=== PATIENT | female | born 1995 | race Caucasian/White ===

== ENCOUNTER 2017-03-18 08:45 | Emergency (ER) | payer OTHER ==
[~2017-03-18] VITALS: Ht 162.6 cm; Wt 63.6 kg
[2017-03-18 08:46] VITALS: BP 118/78; PULSE 62; RESP 14; O2SAT 99
[2017-03-18] MEDS ORDERED: BCP PO (09:11)
--- NOTE | 2017-03-18 09:37 | DRSVH ---
PROCEDURE: X-RAY RIGHT HAND, MINIMUM THREE VIEWS ([id number]) INDICATIONS: pain right hand TECHNIQUE: 3 views of the hand(s) acquired. COMPARISON: None. FINDINGS: Bones: No fractures or dislocations. Carpal bones are normally aligned. No suspicious bony lesions . Soft tissues: No suspicious soft tissue calcifications. IMPRESSION: No visualized acute fracture or dislocation. However, if clinical concern and/or pain pe rsist, short interval imaging followup in 7-10 days is recommended, as occult injury cannot be defini tively excluded. Dictated by: Roseann Deleon M.D. on 03/18/2017 at 9:19 Approved by: Roseann Deleon M.D. on 03/18/2017 at 9:36
--- NOTE | 2017-03-18 09:42 | ED.REPORT ---
HPI-Hand Prob/Inj Date of Service Mar 18, 2017 ED Provider: Jair Pelletier MD Patient is a 21 year old female who presents to the ED complaining of right hand pain onset this morning. Associated symptoms include extremity swelling. She reports that she tripped, tried to catch herself by putting her fist out and hit the wall. Patient states that she had fractured that same hand last year and thinks that it didn't heal right because she did not wear the splint she was given. Nursing Notes Stated Complaint: RIGHT HAND OLD FRACTURE Chief Complaint: Extremity Trauma Nursing Notes Reviewed: Yes Allergies: Coded Allergies: amoxicillin (Verified Allergy, Severe, Anaphylaxis, 03/18/17) Scheduled ([Bcp]) 1 TAB PO DAILY General Time Seen by Provider: 09:44 Chief Complaint Hand injury right Hx Obtained From: Patient Arrived By: Walk-in Onset Occurred: 1 - 4 hours ago Symptom Duration: Since onset Severity: Current: Moderate Associated with: Reports: Swollen extremity Recent Healthcare: No recent doctor visit, No recent hospitalization Similar Sx Previous: Yes Review of Systems Constitutional: Denies: Chills, Fever Musculoskeletal: Reports: Extremity pain (right hand), Extremity swelling Skin: Denies Bruising, Denies Itching, Denies Rash Complete sys rev & neg: except as marked. Respiratory: Denies: Non-productive cough, Shortness of breath Physical Exam Initial Vital Signs Vital Signs (First) Date Time Temp Pulse Resp B/P Pulse Ox O2 Delivery O2 Flow Rate FiO2 03/18/17 08:46 36.3 62 14 118/78 99 Room Air Initial VS: Reviewed Wrist / Hand: Non-tender, Neurologic intact, Vascular intact lateral swelling on the ulnar edge of the right hand limited range of motion with flexion due to pain General/Constitutional: Awake, Alert, No acute distress Skin: Atraumatic, Color NL, No rash, Warm, Dry Neurologic: Oriented X3, Speech NL, No motor deficits, No sensory deficits Head / Eyes: Atraumatic, Normocephalic, PERRL, EOMI Respiratory / Chest: Atraumatic, No respiratory distress Upper Extremity / MS: Atraumatic, Full range of motion Psychiatric: Affect NL, Mood NL Interpretation & Diagnostics X-Ray Interpretation Xray Interpretation: IMPRESSION: No visualized acute fracture or dislocation. However, if clinical concern and/or pain persist, short interval imaging followup in 7-10 days is recommended, as occult injury cannot be definitively excluded. Dictated by: Roseann Deleon M.D. on 03/18/2017 at 9:19 Approved by: Roseann Deleon M.D. on 03/18/2017 at 9:36 X-Ray Ordered: Hand right Interpretation / Wet Read by: Interpret - Radiologist Re-Eval/Medical Decision Re-Evaluation/Progress : Time of Eval: 09:56 Re-Evaluation/Progress Note: Discussed X-ray results and plan for discharge. Patient understands and agrees to plan. All questions were addressed. Counseled Regarding: Diagnosis, Lab results, Need for follow-up, When/why to return to ED Discharge & Departure Primary Impression: Contusion of right hand Encounter type: initial encounter Qualified Code: S60.221A - Contusion of right hand, initial encounter Disposition: Home Discharge Condition All VS Reviewed: Yes Condition: Stable Patient Instructions: Contusions in Adults (ED) Additional Instructions: We did an x-ray and examined your right hand today. It does not look like you broke any bones. Your pain and swelling is most likely due to bruising. For pain relief, you can ice your hand (15 minutes on, 15 minutes off) and take Tylenol or ibuprofen. You do not need to wear a splint or tape your fingers. Schedule a follow-up visit with your primary care provider in [place] in about 1 week (March 25) if you are still in pain or having difficulty using your hand. Referrals: Ezekiel Mccrary MD (PCP) [place] Attestation Portions of this note were transcribed by Andra Polanco. I, Dr. Pelletier personally performed the history, physical exam and medical decision-making; I reviewed and confirmed the accuracy of the information in the transcribed note. Signed by: Verna Scott, 03/18/17 and 0955 Jair Pelletier MD Mar 18, 2017 09:42 Celia Polanco Mar 18, 2017 09:51
== END 2017-03-18 10:15 | disposition home or self-care (01) ==
LOC: SED 08:45
DX: S60.221A Contusion of right hand, initial encounter (principal); W01.0XXA Fall on same level from slipping, tripping and stumbling without subsequent striking against object, initial encounter; Y92.009 Unspecified place in unspecified non-institutional (private) residence as the place of occurrence of the external cause; Y93.89 Activity, other specified; Y99.8 Other external cause status; Z87.828 Personal history of other (healed) physical injury and trauma; Z88.0 Allergy status to penicillin